=== PATIENT | male | born 1945 | race Caucasian/White ===

== ENCOUNTER 2019-07-03 17:32 | Emergency (ER) | payer MEDICARE, OTHER ==
[~2019-07-03] VITALS: Ht 175.3 cm; Wt 118.2 kg
[~2019-07-03 17:32] MED LIST: ACET-1008 PO; ASPI-1265 PO; GABA100C PO; METF-950 PO; METO25TA6 PO
[2019-07-03 18:06] VITALS: BP 143/72
[2019-07-03 19:28] LABS: ALANINE AMINOTRANSFERASE 30 U/L (12-78); ALBUMIN 3.5 G/DL (3.4-5.0); ALBUMIN/GLOBULIN RATIO 0.9 (1.1-1.5); ALKALINE PHOSPHATASE 166 IU/L (46-116); ANION GAP 4 (8-16); ASPARTATE AMINO TRANSFERASE 24 U/L (10-37); BILIRUBIN,TOTAL 1.3 MG/DL (0.1-1.0); BLOOD UREA NITROGEN 22 MG/DL (7-18); BUN/CREATININE RATIO 18.2 (5.4-32.0); CALCIUM 8.1 MG/DL (8.5-10.1); CHLORIDE 100 MMOL/L (99-107); CREATININE 1.21 MG/DL (0.60-1.10); GLUCOSE 157 MG/DL (70-104); POTASSIUM 3.7 MMOL/L (3.5-5.1); SODIUM 133 MMOL/L (135-145); TOTAL CARBON DIOXIDE 29.1 MMOL/L (24-32); TOTAL PROTEIN 7.4 G/DL (6.4-8.2); eGFR 58 ML/MIN
[2019-07-03 19:36] LABS: BASOPHILS # (AUTO) 0.1 X10'3 (0-0.2); BASOPHILS % (AUTO) 0.8 % (0-1); EOSINOPHILS % (AUTO) 0.1 % (0-6); HEMATOCRIT 46.2 % (42.0-52.0); HEMOGLOBIN 15.5 g/dl (14.0-17.9); LYMPHOCYTES # (AUTO) 1.5 X10'3 (1.1-4.8); LYMPHOCYTES % (AUTO) 11.1 % (21-51); MEAN CORPUSCULAR HEMOGLOBIN 28.6 PG (27.0-31.0); MEAN CORPUSCULAR HGB CONC 33.5 g/dL (33.0-36.5); MEAN CORPUSCULAR VOLUME 85.4 FL (78-98); MEAN PLATELET VOLUME 9.4 FL (7.4-10.4); MONOCYTES # (AUTO) 1.1 X10'3 (0-0.9); MONOCYTES % (AUTO) 7.7 % (2-12); NEUTROPHILS # (AUTO) 11.2 X10'3 (1.8-7.7); NEUTROPHILS % (AUTO) 80.3 % (42-75); PLATELET COUNT 198 X10'3 (140-440); RED BLOOD COUNT 5.41 X10'6 (4.70-6.10)
--- NOTE | 2019-07-03 19:46 | NUR ---
ATTEMPTED X1 FOR STRAIGHT CATH. NO SUCCESS. ANOTHER RN WILL ATTEMPT TO STRAIGHT CATH FOR UA.
[2019-07-03] MEDS ORDERED: LIDOcaine 2% 10ml TOPICAL JELLY (Urojet) MM ONE (20:00)
[2019-07-03 20:36] LABS: CLARITY,URINE CLEAR (Clear); COLOR,URINE AMBER (Yellow); GLUCOSE, URINE >=1000 mg/dl (Neg); KETONES,URINE NEGATIVE (Neg); LEUKOCYTE ESTERASE ,URINE NEGATIVE (Neg); NITRITES, URINE NEGATIVE (Neg); OCCULT BLOOD,URINE MODERATE (Neg); PH,URINE 5.5 (4.8-8.0); PROTEIN,URINE NEGATIVE (Neg)
[2019-07-03 20:39] LABS: UA COLLECTION TYPE STRAIGHT CATH
[2019-07-03 20:47] LABS: WBC,URINE 0-4 /HPF (0-4)
[2019-07-03 20:48] LABS: BACTERIA,URINE NONE SEEN /HPF (Neg); HYALINE CASTS 0-3 /LPF (NEGATIVE); MUCUS STRANDS MODERATE /LPF (Neg); SQUAMOUS EPITHELIAL CELL,UR FEW /LPF (FEW)
[2019-07-03] MEDS ORDERED: FLO0.4C PO (21:16)
== END 2019-07-03 21:22 | disposition home or self-care (01) ==
LOC: ER 17:33
DX: N39.0 Urinary tract infection, site not specified (principal); I10 Essential (primary) hypertension; E11.9 Type 2 diabetes mellitus without complications; G89.29 Other chronic pain; Z98.84 Bariatric surgery status; Z98.890 Other specified postprocedural states; Z79.82 Long term (current) use of aspirin; Z79.899 Other long term (current) drug therapy
CPT/HCPCS: 36415; 80053; 81001; 85025; 99284

== ENCOUNTER 2023-03-05 06:39 | Inpatient (IN) | payer OTHER, MEDICARE ==
[2023-03-05] VITALS (9 sets, daily range): BP systolic 144–191; BP diastolic 93–101; PULSE 93–104; RESP 15–20; TEMP 97.7; O2SAT 90–96
[~2023-03-05] VITALS: Ht 177.8 cm; Wt 122.7 kg
[~2023-03-05 06:39] MED LIST changes: -ACET-1008 PO; -ASPI-1265 PO; +ASPI81TA52 PO; +ATOR80TA PO; +CHOL20004 PO; +CYAN500T71 PO; +DONE-46 PO; +FLO0.4C PO; +GABA-530 PO; -GABA100C PO; +IBUP-1986 PO; +LOP12.5T PO; +METF-900 PO; -METF-950 PO; -METO25TA6 PO; +NITR0.4T51 SL; +OMEG-79 PO; +ONDA8TAB13 PO; +OXYC-150 PO; +TEMA30CA5 PO
[2023-03-05 07:19] LABS: BASOPHILS # (AUTO) 0.1 X10'3 (0-0.2); BASOPHILS % (AUTO) 1.2 % (0-1); EOSINOPHILS # (AUTO) 0.1 X10'3 (0-0.9); HEMATOCRIT 41.5 % (42.0-52.0); HEMOGLOBIN 13.5 g/dl (14.0-17.9); LYMPHOCYTES # (AUTO) 2.2 X10'3 (1.1-4.8); LYMPHOCYTES % (AUTO) 29.5 % (21-51); MEAN CORPUSCULAR HEMOGLOBIN 26.7 PG (27.0-31.0); MEAN CORPUSCULAR HGB CONC 32.5 g/dL (33.0-36.5); MEAN CORPUSCULAR VOLUME 82.2 FL (78-98); MEAN PLATELET VOLUME 8.3 FL (7.4-10.4); MONOCYTES # (AUTO) 0.5 X10'3 (0-0.9); MONOCYTES % (AUTO) 6.9 % (2-12); NEUTROPHILS # (AUTO) 4.5 X10'3 (1.8-7.7); NEUTROPHILS % (AUTO) 60.4 % (42-75); PLATELET COUNT 241 X10'3 (140-440); RED BLOOD COUNT 5.04 X10'6 (4.70-6.10); WHITE BLOOD COUNT 7.5 X10'3 (4.5-11.0)
[2023-03-05 07:32] LABS: ALANINE AMINOTRANSFERASE 19 U/L (12-78); ALBUMIN 3.7 G/DL (3.4-5.0); ALBUMIN/GLOBULIN RATIO 0.9 (1.1-1.5); ALKALINE PHOSPHATASE 134 IU/L (46-116); ANION GAP 9 (8-16); ASPARTATE AMINO TRANSFERASE 14 U/L (10-37); BILIRUBIN,TOTAL 0.8 MG/DL (0.1-1.0); BLOOD UREA NITROGEN 17 MG/DL (7-18); BUN/CREATININE RATIO 15.9 (10.0-20.0); CALCIUM 9.3 MG/DL (8.5-10.1); CHLORIDE 104 MMOL/L (99-107); CREATININE 1.07 MG/DL (0.60-1.10); GLUCOSE 185 MG/DL (70-104); POTASSIUM 4.1 MMOL/L (3.5-5.1); SODIUM 139 MMOL/L (135-145); TOTAL CARBON DIOXIDE 26.2 MMOL/L (24-32); TOTAL PROTEIN 7.8 G/DL (6.4-8.2); eCRCL 58 ML/MIN; eGFR 67 ML/MIN
[2023-03-05 07:41] LABS: PRO BRAIN NATRIURETIC PEPTIDE 3531 PG/ML (0-450)
[2023-03-05] MEDS ORDERED: nitroGLYCERIN 0.2mg/hour patch TD ONE (08:05)
[2023-03-05] MEDS ORDERED: pantoprazole 40 MG vial IV ONE (08:05)
[2023-03-05] MEDS ORDERED: albuterol 2.5 MG/3 ML nebule NEB ONE (08:05)
[2023-03-05] MEDS ORDERED: furosemide 10 MG/1 ML 10ml inj IV ONE (08:05)
[2023-03-05] MEDS ORDERED: acetaminophen 325mg tablet PO ONE (08:05)
[2023-03-05] MEDS ORDERED: aspirin 325mg tablet, delayed-release (Ecotrin) PO ONE (08:05)
[2023-03-05] MEDS ORDERED: ipratropium 0.5 MG/2.5ML nebule IH ONE (08:05)
[2023-03-05] MEDS ORDERED: pantoprazole 40MG/NS 100ML BAG 100 ML IV ONE (08:20)
[2023-03-05] MEDS ORDERED: iohexol 350MG/ML 100ml bottle IV ONE (08:21)
[2023-03-05 08:35] LABS: APTT 29 SECONDS (22-32); PHOSPHORUS 3.8 MG/DL (2.3-4.5); PROTHROMBIN TIME 11.2 SECONDS (9.0-12.0)
[2023-03-05 08:36] LABS: ABG BASE EXCESS -1.4 mmol/L (-2.0-2.0); ABG HCO3 23.5 mmol/L (22.0-26.0); ABG OXYGEN SATURATION 98.1 % (94-97); ABG PCO2 (T) 38.6 mmHg (35.0-48.0); ABG PH (T) 7.397 (7.340-7.440); ABG PO2 (T) 117.2 mmHg (75.0-100.0); ALLEN'S TEST POSITIVE; FCOHb 0.8 % (0.0-3.9); FHHb 1.9 % (0.0-5.0); FLOW 8 L/min; FMetHb 0.1 % (0.0-1.5); FO2Hb 97.2 % (94-97); MODE MASK - SIMPLE; PATIENT TEMPERATURE 36.1; TOTAL HEMOGLOBIN 13.5 G/dl (14.0-17.9)
--- NOTE | 2023-03-05 09:06 | NUR ---
PT MEDICATED PER ORDERS. WENT HOME. PT A/O X4 WITH C/O SOB. PT ABLE TO SPEAK IN FULL SENT.RT TX DONE, PT OFF FLOOR TO RADIOLOGY.
[2023-03-05] MEDS ORDERED: CefTRIAXone/D5W-Rocephin 1gm 50 ML IV ONE (10:25)
[2023-03-05] MEDS ORDERED: azithromycin/NS 500mg/250ml 250 ML IV ONE (10:25)
[2023-03-05] MEDS ORDERED: magnesium 4gm in 100ml NS 100 ML IV PRN (10:55)
[2023-03-05] MEDS ORDERED: potassium Cl 20 mEq SR tablet PO PRN ×2 (10:55)
[2023-03-05] MEDS ORDERED: acetaminophen 325mg tablet PO PRN ×2 (10:55)
[2023-03-05] MEDS ORDERED: HYDROcodone/acetaminophen 5mg/325mg tablet PO PRN (10:55)
[2023-03-05] MEDS ORDERED: potassium Cl 40MEQ/1/2NS 520ml 520 ML IV PRN (10:55)
[2023-03-05] MEDS ORDERED: ondansetron/PF 4mg/2ml inj IV PRN (10:55)
[2023-03-05] MEDS ORDERED: morphine 2 MG/ML inj. syringe IV PRN (10:55)
[2023-03-05] MEDS ORDERED: magnesium 2GM in 50ml NS 50 ML IV PRN (10:55)
[2023-03-05] MEDS ORDERED: magnesium Cl slow-release 64mg tablet PO PRN (10:55)
[2023-03-05 11:27] LABS: BILIRUBIN,URINE NEGATIVE (Neg); CLARITY,URINE SLIGHTLY CLOUDY (Clear); COLOR,URINE YELLOW (Yellow); GLUCOSE, URINE 100 mg/dl (Neg); KETONES,URINE NEGATIVE (Neg); LEUKOCYTE ESTERASE ,URINE SMALL (Neg); NITRITES, URINE POSITIVE (Neg); OCCULT BLOOD,URINE NEGATIVE (Neg); PH,URINE 5.5 (4.8-8.0); PROTEIN,URINE NEGATIVE (Neg); UROBILINOGEN,URINE 0.2 E.U/dL (0.2-1.0)
[2023-03-05 11:36] LABS: UA COLLECTION TYPE CLN CATCH MIDSTREAM
[2023-03-05 11:39] LABS: BACTERIA,URINE 4+ /HPF (Neg); RBC,URINE NONE SEEN /HPF (0-2); SQUAMOUS EPITHELIAL CELL,UR FEW /LPF (FEW); WBC,URINE 30-50 /HPF (0-4)
[2023-03-05 11:40] LABS: MUCUS STRANDS NONE SEEN /LPF (Neg)
--- NOTE | 2023-03-05 11:50 | NUR ---
PT RESTING QUIETLY IN NAD. PT GETS UP TO BS TO USE URINAL W/O ASSIST
[2023-03-05] MEDS: albuterol 2.5 MG/3 ML nebule NEB SCH ×2 (15:52→20:14)
[2023-03-05] MEDS ORDERED: EZET10TA48 PO (16:14)
[2023-03-05] MEDS ORDERED: FINA5TAB11 PO (16:14)
[2023-03-05] MEDS ORDERED: DONE10TA44 PO (16:14)
--- NOTE | 2023-03-05 17:20 | NUR ---
PT UP TO BS USING URINAL. PT A/O X4 REPORTS NO DISTRESS.
[2023-03-05] MEDS ORDERED: enoxaparin 40mg/0.4ml syringe SQ SCH (20:00)
[2023-03-05] MEDS ORDERED: insulin Lispro (HumaLOG) vial - multi-dose SQ SCH (20:00)
[2023-03-05] MEDS ORDERED: furosemide 40mg/4ml inj IV SCH (20:00)
[2023-03-05] MEDS ORDERED: glucagon, human recombinant 1mg kit SUBCUT PRN (20:00)
[2023-03-05] MEDS ORDERED: MESSAGE TO PHARMACY PO ONE (20:00)
[2023-03-05] MEDS ORDERED: dextrose 50%-water 50ml dispensing syringe IV PRN ×2 (20:00)
[2023-03-05] MEDS ORDERED: DEXTROSE 15 GM of carb/4 tabs (each vial/BOTTLE has 4 tablets) PO PRN ×2 (20:00)
--- NOTE | 2023-03-05 20:23 | NUR ---
Page Sent promotional table spacer PAGER ID: [phone] MESSAGE TO : Morteza Urrutia rm [id number] has b/p on the L hand 175/93 and R hand 191/101 with hr of 104. YOLANDE .[facility]. [id number]. New order is to give pt po 50mg metoprolol once.
[2023-03-05] MEDS ORDERED: metoprolol tartrate 50mg tablet PO ONE (20:25)
--- NOTE | 2023-03-05 20:35 | NUR ---
Page Sent PAGER ID: [phone] MESSAGE: Morteza Urrutia rm [id number] is complaining of constant back pain.YOLANDE U [id number].New order to give po 5mg norco once now and change the former one which is every prn 8hrs to 6hrs.
[2023-03-05] MEDS ORDERED: HYDROcodone/acetaminophen 5mg/325mg tablet PO ONE (20:40)
[2023-03-05] MEDS: furosemide 40mg/4ml inj IV SCH (20:49)
[2023-03-05] MEDS ORDERED: temazepam 15mg capsule PO PRN (21:00)
[2023-03-05] MEDS ORDERED: insulin glargine (Lantus) pen - multi-dose SQ SCH (21:00)
[2023-03-06] VITALS (7 sets, daily range): BP systolic 120–127; BP diastolic 71; PULSE 54–102; RESP 15–18; TEMP 97.7; O2SAT 95–97
[2023-03-06] MEDS: albuterol 2.5 MG/3 ML nebule NEB SCH ×3 (02:36→14:00)
[2023-03-06] MEDS: HYDROcodone/acetaminophen 5mg/325mg tablet PO PRN ×3 (04:43→13:40)
--- NOTE | 2023-03-06 06:37 | NUR ---
Problems reprioritized. Patient report given, questions answered & plan of care reviewed with Ervin
[2023-03-06 07:47] LABS: BASOPHILS # (AUTO) 0.1 X10'3 (0-0.2); BASOPHILS % (AUTO) 0.8 % (0-1); EOSINOPHILS # (AUTO) 0.2 X10'3 (0-0.9); EOSINOPHILS % (AUTO) 2.2 % (0-6); HEMATOCRIT 39.1 % (42.0-52.0); HEMOGLOBIN 12.9 g/dl (14.0-17.9); LYMPHOCYTES # (AUTO) 2.1 X10'3 (1.1-4.8); LYMPHOCYTES % (AUTO) 24.1 % (21-51); MEAN CORPUSCULAR HEMOGLOBIN 26.8 PG (27.0-31.0); MEAN CORPUSCULAR HGB CONC 32.9 g/dL (33.0-36.5); MEAN CORPUSCULAR VOLUME 81.4 FL (78-98); MEAN PLATELET VOLUME 9.1 FL (7.4-10.4); MONOCYTES # (AUTO) 0.7 X10'3 (0-0.9); NEUTROPHILS # (AUTO) 5.8 X10'3 (1.8-7.7); NEUTROPHILS % (AUTO) 64.9 % (42-75); PLATELET COUNT 242 X10'3 (140-440); RED CELL DISTRIBUTION WIDTH 18.1 % (11.5-14.5); WHITE BLOOD COUNT 8.9 X10'3 (4.5-11.0)
[2023-03-06] MEDS ORDERED: CefTRIAXone 2gm/D5W 50ml BAG 50 ML IV SCH (08:00)
[2023-03-06 08:12] LABS: ALANINE AMINOTRANSFERASE 18 U/L (12-78); ALBUMIN 3.4 G/DL (3.4-5.0); ALBUMIN/GLOBULIN RATIO 0.9 (1.1-1.5); ALKALINE PHOSPHATASE 119 IU/L (46-116); ANION GAP 10 (8-16); ASPARTATE AMINO TRANSFERASE 13 U/L (10-37); BILIRUBIN,TOTAL 0.7 MG/DL (0.1-1.0); BLOOD UREA NITROGEN 19 MG/DL (7-18); BUN/CREATININE RATIO 18.4 (10.0-20.0); CALCIUM 9.1 MG/DL (8.5-10.1); CHLORIDE 101 MMOL/L (99-107); CREATININE 1.03 MG/DL (0.60-1.10); GLUCOSE 156 MG/DL (70-104); POTASSIUM 3.8 MMOL/L (3.5-5.1); SODIUM 138 MMOL/L (135-145); TOTAL CARBON DIOXIDE 26.8 MMOL/L (24-32); TOTAL PROTEIN 7.3 G/DL (6.4-8.2); eCRCL 60 ML/MIN; eGFR 70 ML/MIN
[2023-03-06] MEDS ORDERED: losartan 50mg tablet PO SCH (08:50)
[2023-03-06] MEDS ORDERED: metoprolol tartrate 50mg tablet PO ONE (08:50)
[2023-03-06] MEDS ORDERED: nitroGLYCERIN 0.4mg SUBLingual tab SL PRN (08:50)
[2023-03-06] MEDS: furosemide 40mg/4ml inj IV SCH (09:18)
[2023-03-06] MEDS ORDERED: FURO-150 PO (10:36)
[2023-03-06] MEDS ORDERED: POTA-207 PO (10:36)
[2023-03-06] MEDS ORDERED: LOSA50TA64 PO (10:36)
[2023-03-06] MEDS ORDERED: metoprolol tartrate 50mg tablet PO SCH (20:00)
[2023-03-06] MEDS ORDERED: OMEGA-3/DHA/EPA/FISH OIL 1 EACH CAPSULE.DR PO SCH (20:00)
[2023-03-06] MEDS ORDERED: atorvastatin 20mg tablet PO SCH (21:00)
[2023-03-06] MEDS ORDERED: donepezil 5mg tablet PO SCH (21:00)
[2023-03-07] MEDS ORDERED: cyanocobalamin 500mcg tablet PO SCH (08:00)
[2023-03-07] MEDS ORDERED: finasteride 5mg tablet PO SCH (08:00)
[2023-03-07] MEDS ORDERED: aspirin 81mg, enteric-coated 1 TAB TABLET.DR PO SCH (08:00)
[2023-03-07] MEDS ORDERED: ezetimibe 10mg tablet PO SCH (08:00)
[2023-03-07] MEDS ORDERED: cholecalciferol (vitamin D3) 1,000 unit (25mcg) tablet PO SCH (08:00)
== END 2023-03-06 15:17 | disposition home or self-care (01) | DRG 291 ==
LOC: ER 06:40 → ED HOLD 10:59 → PCU 3S 19:35
PROVIDERS: ADMIT Internal Medicine; ATTEND Internal Medicine
PROC: B32T1ZZ Computerized Tomography (CT Scan) of Left Pulmonary Artery using Low Osmolar Contrast (ICD-10-PCS; principal; 2023-03-05)
PROC: B3201ZZ Computerized Tomography (CT Scan) of Thoracic Aorta using Low Osmolar Contrast (ICD-10-PCS; 2023-03-05)
PROC: B32S1ZZ Computerized Tomography (CT Scan) of Right Pulmonary Artery using Low Osmolar Contrast (ICD-10-PCS; 2023-03-05)
DX: I11.0 Hypertensive heart disease with heart failure (principal); I50.43 Acute on chronic combined systolic (congestive) and diastolic (congestive) heart failure; J98.11 Atelectasis; E11.40 Type 2 diabetes mellitus with diabetic neuropathy, unspecified; N40.0 Benign prostatic hyperplasia without lower urinary tract symptoms; I48.91 Unspecified atrial fibrillation; Z98.84 Bariatric surgery status; Z79.899 Other long term (current) drug therapy; Z87.891 Personal history of nicotine dependence; E78.5 Hyperlipidemia, unspecified
CPT/HCPCS: 36415; 36600; 71045; 71275; 80053; 81001; 82803; 82948; 83605; 83880; 84100; 84145; 84484; 85018; 85025; 85610; 85730; 87040; 87077; 87081; 87088; 87186; 93005; 93306; 94640; 94760; 96365; 96375; 99285; C9113; G0378; J0456; J0696; J1650; J1815; J1940; J3490; J7040; Q9967

== ENCOUNTER 2024-04-20 15:55 | Emergency (ER) | payer OTHER, MEDICARE ==
[~2024-04-20] VITALS: Ht 180.3 cm; Wt 93.2 kg
[~2024-04-20 15:55] MED LIST changes: +ATOR-429 PO; -ATOR80TA PO; -DONE-46 PO; +DONE10TA44 PO; +EZET10TA48 PO; +FINA5TAB11 PO; -FLO0.4C PO; +FURO-150 PO; -GABA-530 PO; +LOSA50TA64 PO; -ONDA8TAB13 PO; -OXYC-150 PO; +POTA-207 PO; -TEMA30CA5 PO
[2024-04-20 16:36] LABS: BASOPHILS # (AUTO) 0.1 X10'3 (0-0.2); BASOPHILS % (AUTO) 0.6 % (0-1); EOSINOPHILS # (AUTO) 0.1 X10'3 (0-0.9); EOSINOPHILS % (AUTO) 1.2 % (0-6); HEMATOCRIT 45.6 % (42.0-52.0); HEMOGLOBIN 15.2 g/dl (14.0-17.9); LYMPHOCYTES # (AUTO) 1.6 X10'3 (1.1-4.8); LYMPHOCYTES % (AUTO) 18.5 % (21-51); MEAN CORPUSCULAR HEMOGLOBIN 28.5 PG (27.0-31.0); MEAN CORPUSCULAR HGB CONC 33.3 g/dL (33.0-36.5); MEAN CORPUSCULAR VOLUME 85.6 FL (78-98); MEAN PLATELET VOLUME 7.6 FL (7.4-10.4); MONOCYTES # (AUTO) 0.7 X10'3 (0-0.9); MONOCYTES % (AUTO) 7.7 % (2-12); NEUTROPHILS # (AUTO) 6.2 X10'3 (1.8-7.7); PLATELET COUNT 229 X10'3 (140-440); RED BLOOD COUNT 5.33 X10'6 (4.70-6.10); RED CELL DISTRIBUTION WIDTH 17.7 % (11.5-14.5); WHITE BLOOD COUNT 8.6 X10'3 (4.5-11.0)
[2024-04-20 16:51] LABS: ALANINE AMINOTRANSFERASE 15 U/L (12-78); ALBUMIN 3.6 G/DL (3.4-5.0); ALBUMIN/GLOBULIN RATIO 0.9 (1.1-1.5); ANION GAP 9 (8-16); ASPARTATE AMINO TRANSFERASE 14 U/L (10-37); BLOOD UREA NITROGEN 16 MG/DL (7-18); BUN/CREATININE RATIO 13.9 (10.0-20.0); CALCIUM 8.6 MG/DL (8.5-10.1); CHLORIDE 103 MMOL/L (99-107); CREATININE 1.15 MG/DL (0.60-1.10); GLUCOSE 121 MG/DL (70-104); POTASSIUM 4.4 MMOL/L (3.5-5.1); SODIUM 139 MMOL/L (135-145); TOTAL CARBON DIOXIDE 26.6 MMOL/L (24-32); TOTAL PROTEIN 7.6 G/DL (6.4-8.2); eCRCL 55 ML/MIN; eGFR 61 ML/MIN
[2024-04-20 16:52] LABS: ALKALINE PHOSPHATASE 152 IU/L (46-116)
[2024-04-20 16:59] LABS: PRO BRAIN NATRIURETIC PEPTIDE 2258 PG/ML (0-450)
[2024-04-20 18:48] VITALS: BP 102/55; PULSE 75; RESP 16; TEMP 98; O2SAT 93
== END 2024-04-20 21:57 | disposition left against medical advice (07) ==
LOC: ER 15:56
DX: R06.02 Shortness of breath (principal); I50.9 Heart failure, unspecified; Z53.21 Procedure and treatment not carried out due to patient leaving prior to being seen by health care provider
CPT/HCPCS: 36415; 71045; 80053; 83880; 84484; 85025; 93005

== ENCOUNTER 2024-07-28 01:55 | Emergency (ER) | payer OTHER, MEDICARE ==
[~2024-07-28] VITALS: Ht 170.2 cm; Wt 118.1 kg
[2024-07-28 02:28] LABS: BASOPHILS % (AUTO) 0.5 % (0-1); EOSINOPHILS # (AUTO) 0.1 X10'3 (0-0.9); EOSINOPHILS % (AUTO) 0.8 % (0-6); HEMATOCRIT 46.6 % (42.0-52.0); HEMOGLOBIN 15.3 g/dl (14.0-17.9); LYMPHOCYTES # (AUTO) 0.5 X10'3 (1.1-4.8); LYMPHOCYTES % (AUTO) 6.5 % (21-51); MEAN CORPUSCULAR HEMOGLOBIN 28.3 PG (27.0-31.0); MEAN CORPUSCULAR HGB CONC 32.8 g/dL (33.0-36.5); MEAN CORPUSCULAR VOLUME 86.3 FL (78-98); MEAN PLATELET VOLUME 7.6 FL (7.4-10.4); MONOCYTES # (AUTO) 0.5 X10'3 (0-0.9); NEUTROPHILS # (AUTO) 6.8 X10'3 (1.8-7.7); NEUTROPHILS % (AUTO) 86.2 % (42-75); PLATELET COUNT 169 X10'3 (140-440); RED CELL DISTRIBUTION WIDTH 18.1 % (11.5-14.5); WHITE BLOOD COUNT 7.9 X10'3 (4.5-11.0)
[2024-07-28 02:42] LABS: ALANINE AMINOTRANSFERASE 13 U/L (12-78); ALBUMIN 3.4 G/DL (3.4-5.0); ALBUMIN/GLOBULIN RATIO 0.8 (1.1-1.5); ALKALINE PHOSPHATASE 130 IU/L (46-116); ANION GAP 11 (8-16); ASPARTATE AMINO TRANSFERASE 20 U/L (10-37); BILIRUBIN,TOTAL 0.7 MG/DL (0.1-1.0); BLOOD UREA NITROGEN 22 MG/DL (7-18); BUN/CREATININE RATIO 17.3 (10.0-20.0); CALCIUM 8.3 MG/DL (8.5-10.1); CHLORIDE 104 MMOL/L (99-107); CREATININE 1.27 MG/DL (0.60-1.10); GLUCOSE 188 MG/DL (70-104); POTASSIUM 4.1 MMOL/L (3.5-5.1); SODIUM 141 MMOL/L (135-145); TOTAL PROTEIN 7.7 G/DL (6.4-8.2); eCRCL 43 ML/MIN; eGFR 54 ML/MIN
[2024-07-28] MEDS: HYDROcodone/acetaminophen 5mg/325mg tablet PO ONE (02:43)
[2024-07-28 02:49] LABS: PRO BRAIN NATRIURETIC PEPTIDE 2198 PG/ML (0-450)
[2024-07-28] MEDS ORDERED: FLO0.4C PO (04:31)
[2024-07-28] MEDS ORDERED: AMIT50TA15 PO (04:31)
[2024-07-28] MEDS ORDERED: METO-411 PO (04:31)
[2024-07-28] MEDS ORDERED: DOCU100C40 PO (04:31)
[2024-07-28] MEDS ORDERED: GABA300C PO (04:31)
[2024-07-28] MEDS ORDERED: VITC500T PO (04:31)
[2024-07-28 05:23] VITALS: BP 114/74; PULSE 116; RESP 13; O2SAT 98
[2024-07-28 05:40] LABS: BILIRUBIN,URINE NEGATIVE (Neg); CLARITY,URINE CLOUDY (Clear); COLOR,URINE YELLOW (Yellow); GLUCOSE, URINE >=1000 mg/dl (Neg); KETONES,URINE NEGATIVE (Neg); LEUKOCYTE ESTERASE ,URINE TRACE (Neg); NITRITES, URINE POSITIVE (Neg); OCCULT BLOOD,URINE TRACE-INTACT (Neg); PH,URINE 5.5 (4.8-8.0); PROTEIN,URINE TRACE mg/dl (Neg); UROBILINOGEN,URINE 0.2 E.U/dL (0.2-1.0)
[2024-07-28 05:45] LABS: UA COLLECTION TYPE CLN CATCH MIDSTREAM
[2024-07-28 05:51] LABS: BACTERIA,URINE 4+ /HPF (Neg); RBC,URINE 0-2 /HPF (0-2); SQUAMOUS EPITHELIAL CELL,UR MODERATE /LPF (FEW)
[2024-07-28] MEDS ORDERED: AMOX-419 PO (05:51)
[2024-07-28 05:52] LABS: WBC,URINE 30-50 /HPF (0-4)
[2024-07-28] MEDS: CefTRIAXone/D5W-Rocephin 1gm 50 ML IV ONE (06:14)
[2024-07-28 06:39] VITALS: TEMP 98.4
== END 2024-07-28 07:12 | disposition home or self-care (01) ==
LOC: ER 01:56
DX: N39.0 Urinary tract infection, site not specified (principal); E11.9 Type 2 diabetes mellitus without complications; I10 Essential (primary) hypertension; Z98.84 Bariatric surgery status; Z98.890 Other specified postprocedural states; Z79.82 Long term (current) use of aspirin
CPT/HCPCS: 36415; 71045; 80053; 81001; 83605; 83880; 84145; 84484; 85025; 87040; 87088; 87186; 93005; 96365; 99285; J0696; 87077